=== PATIENT | male | born 1990 | race American Indian/Alaskan Native ===

== ENCOUNTER 2023-01-21 22:12 | Emergency (ER) | payer MEDICAID ==
[~2023-01-21] VITALS: Ht 172.7 cm; Wt 90.7 kg
[2023-01-22 00:38] LABS: BASOPHILS 0.8 % (0-2); HEMATOCRIT 43.3 % (35.0-50.0); HEMOGLOBIN 14.6 g/dL (12.0-18.0); LYMPHOCYTES 43.8 % (24-44); MCH 33.7 (27-36); MCHC 33.7 g/dl (30-36); MONOCYTES 6.1 % (0-12); NEUTROPHILS 45.3 % (39-80); PLATELET COUNT 299 K/uL (140-440); RBC 4.33 M/ul (4.3-5.7); RDW 14.3 (10.5-15.0)
[2023-01-22 00:55] LABS: ALBUMIN 3.6 g/dL (3.4-5.0); ALBUMIN/GLOBULIN RATIO 0.95 (1.1-2.4); ANION GAP 15.4 (7-21); BILIRUBIN, TOTAL 0.3 ng/dL (0.2-1.0); BUN/CREATININE RATIO 6.66 (6.0-28.6); CALCIUM 7.9 mg/dL (8.5-10.1); CREATININE, SERUM 0.9 mg/dL (0.70-1.30); POTASSIUM 3.4 mmol/L (3.5-5.1); PROTEIN, TOTAL 7.4 g/dL (6.4-8.2)
[2023-01-22 02:20] VITALS: BP 105/67
--- OUTSIDE RECORDS SUMMARY | 2023-01-22 02:26 | XMS ---
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 Hillary has no Care Guidelines for this patient. April VISIT COUNT (12 MO.) [address] TOTAL 3 NOTE: Visits indicate total known visits. ED/C VISIT TRACKING (12 MO.) [facility] COMPLAINT: - ALTERED 12/29/2022 16:47 [facility] TYPE: Emergency COMPLAINT: - Shortness of Breathe/ Can't hold anything down DIAGNOSES: - Gastritis, unspecified, without bleeding - Gastritis, unspecified, without bleeding - Shortness of breath 03/01/2022 08:08 [facility] TYPE: Emergency DIAGNOSES: - Dislocation of distal interphalangeal joint of left index finger, initial encounter INPATIENT VISIT TRACKING (12 MO.) No inpatient visits to display in this time frame [email or web address]
== END 2023-01-22 02:20 | disposition home or self-care (01) ==
LOC: ED 22:12
PROVIDERS: Emergency Medicine
DX: F10.129 Alcohol abuse with intoxication, unspecified (principal); Y90.8 Blood alcohol level of 240 mg/100 ml or more
CPT/HCPCS: 36415; 70450; 80053; 85025; 99284-25; G0480